=== PATIENT | male | born 1970 ===

== ENCOUNTER → 2018-03-19 | Outpatient (CLI) | payer OTHER ==
[~2018-03-19] MED LIST: IOHEXOL 300 MG/ML 100ML BOTTLE IJ ONE
[2018-03-19 10:59] LABS: BUN/Creatinine Ratio 4.9; Potassium 4.8 mmol/L (3.5-5.1)
== END | disposition home or self-care (01) ==
LOC: CT 09:37
DX: C91.10 Chronic lymphocytic leukemia of B-cell type not having achieved remission (principal)
CPT/HCPCS: 36415; 71260; 74177; 80048; Q9967

== ENCOUNTER → 2018-05-04 | Outpatient (CLI) | payer OTHER ==
[2018-05-04 15:09] LABS: Hemoglobin 17.2 g/dL (13.5-17.5); Platelet Count (auto) 187 10^3/uL (140-450)
[2018-05-04 15:11] LABS: Hematocrit 51.8 % (41.0-53.0); Mean Corpuscular Hemoglobin 27.4 pg (28.0-32.0); Mean Corpuscular Hgb Conc. 33.2 g/dL (32.0-36.0); Mean Corpuscular Volume 82.4 fL (80.0-100.0); Red Blood Cells 6.28 10^6/uL (4.5-5.90); Red Cell Distribution Width 13.4 % (11.8-14.3); White Blood Cell 21.2 10^3/uL (4.4-10.8)
[2018-05-04 15:21] LABS: Albumin 4.5 g/dL (3.4-5.0); BUN/Creatinine Ratio 6.7; Bilirubin, Total 0.4 mg/dL (0.2-1.0); Calcium 8.9 mg/dL (8.5-10.1); Potassium 4.5 mmol/L (3.5-5.1)
[2018-05-04 15:28] LABS: Band Neutrophils % (manual) 0; Basophils % (manual) 0 (0.0-2.0); Blast Cells 0; Metamyelocytes % 0; Myelocytes % 0; Promyelocytes % 0
[2018-05-04 17:41] LABS: Eosinophils % (manual) 2 (0-7); Lymphocytes % (manual) 75 (10.0-50.0); Monocytes % (manual) 3 (0-12); Reactive Lymphocytes 5
[2018-05-06 09:35] LABS: Hepatitis B Surface Antibody Negative
[2018-05-06 09:59] LABS: Hepatitis A Total Antibody Positive
[2018-05-06 10:56] LABS: Hepatitis B Core Total AB Negative; Hepatitis B Surface Antigen Negative (Negative); Hepatitis C Antibody Negative (Negative)
== END | disposition home or self-care (01) ==
LOC: LAB 14:20
PROVIDERS: ATTEND Internal Medicine
DX: C91.10 Chronic lymphocytic leukemia of B-cell type not having achieved remission (principal); I10 Essential (primary) hypertension
CPT/HCPCS: 36415; 80053; 83615; 85007; 85027; 86704; 86706; 86708; 86803; 87340